=== PATIENT | male | born 1960 | race African-American/Black ===

== ENCOUNTER 2018-02-13 08:50 | Inpatient (IN) | payer BC, OTHER ==
[2018-02-13] MEDS: FUROSEMIDE 40 MG INJ IV (09:06)
[2018-02-13] MEDS: NITROGLYCERIN (SL) 0.4 MG TAB SL (09:06)
[2018-02-13] MEDS: ASPIRIN 81 MG TAB PO (09:07)
[2018-02-13] MEDS: METHYLPREDNISOLONE 125 MG INJ IV (09:07)
[2018-02-13] MEDS: hydrALAzine 20 MG INJ IV ×2 (09:29→15:40)
[2018-02-13] MEDS: ONDANSETRON 4 MG INJ IV (09:29)
[2018-02-13 09:43] LABS: ADD MAN DIFF? NO
[2018-02-13] MEDS: NITROGLYCERIN 50 MG/D5W (PMX) 250 ML IV ×3 (09:46→17:43)
[2018-02-13 09:51] LABS: BASOPHIL # 0.1 10^3/ul (0.0-0.1); BASOPHILS % 0.5 % (0.0-2.0); EOSINOPHILS # 0.1 10^3/ul (0.0-0.5); EOSINOPHILS % 0.9 % (0.0-7.0); HEMATOCRIT 33.9 % (42.0-52.0); HEMOGLOBIN 10.9 g/dl (14.0-18.0); LYMPHOCYTES # 0.8 10^3/ul (0.8-2.9); LYMPHOCYTES % 6.1 % (15.0-51.0); MEAN CORPUSCULAR HEMOGLOBIN 28.2 pg (29.0-33.0); MEAN CORPUSCULAR HGB CONC 32.2 g/dl (32.0-37.0); MEAN CORPUSCULAR VOLUME 87.8 fl (82.0-101.0); MEAN PLATELET VOLUME 12.6 fl (7.4-10.4); MONOCYTE # 0.6 10^3/ul (0.3-0.9); MONOCYTES % 4.4 % (0.0-11.0); NEUTROPHILS % 86.7 % (39.0-77.0); PLATELET COUNT 250 10^3/UL (140-415); RED BLOOD COUNT 3.86 10^6/ul (4.70-6.10); RED CELL DISTRIBUTION WIDTH 15.5 % (11.5-14.5)
[2018-02-13 09:51] LABS: WHITE BLOOD COUNT 12.6 10^3/ul (4.8-10.8)
[2018-02-13 10:16] LABS: ALANINE AMINOTRANSFERASE 55 IU/L (13-69); ALBUMIN 4.7 g/dl (3.3-4.9); ALKALINE PHOSPHATASE 161 IU/L (42-121); ANION GAP 16 (8-16); ASPARTATE AMINO TRANSFERASE 48 IU/L (15-46); BILIRUBIN,INDIRECT 0.6 mg/dl (0-1.1); BILIRUBIN,TOTAL 0.6 mg/dl (0.2-1.3); BLOOD UREA NITROGEN 38 mg/dl (7-20); CALCIUM 9.3 mg/dl (8.4-10.2); CARBON DIOXIDE 25 mmol/L (21-31); CHLORIDE 104 mmol/L (97-110); CREATININE 4.79 mg/dl (0.61-1.24); GLUCOSE 199 mg/dl (70-220); LIPASE 81 U/L (23-300); POTASSIUM 3.8 mmol/L (3.5-5.1); SODIUM 141 mmol/L (135-144); TOTAL PROTEIN 8.7 g/dl (6.1-8.1)
[2018-02-13 10:26] LABS: TROPONIN-I 0.012 ng/ml (0.000-0.120)
[2018-02-13] MEDS: METOCLOPRAMIDE 10 MG INJ IV (10:27)
[2018-02-13 10:49] LABS: Allen Test ACCEPTAB; Arterial Base Excess -1.5 mmol/L (-3.0-3); Arterial Blood Gas Oxygen Sat 85.8 mmHG (95.0-98.0); Arterial COHb 1.7 % (0.0-3.0); Arterial Fraction of Oxyhgb 84.1 % (93.0-99.0); Arterial HCO3 23.1 mmol/L (22.0-26.0); Arterial MetHb 0.3 % (0.0-1.5); Arterial pCO2 38.2 mmhg (35-45); MODE NASAL CANNULA; Site Right Radial
[2018-02-13] MEDS: ALBUTEROL 0.5% (NEB) 2.5 MG/0.5 ML AMP INH (10:57)
[2018-02-13] MEDS: IPRATROPIUM (NEB) 0.5 MG/2.5 ML AMP INH (10:58)
[2018-02-13] MEDS: ATENOLOL 50 MG TAB PO (13:33)
[2018-02-13] MEDS ORDERED: ALBUTEROL HFA 8 GM INHALER INH (15:30)
[2018-02-13 15:51] LABS: CHOLESTEROL 165 mg/dl (100-200)
[2018-02-13 15:51] LABS: CHOL/HDL RATIO 1.6 RATIO; HDL CHOLESTEROL 98 mg/dl (28-71); LDL CHOLESTEROL,CALCULATED 54 mg/dl; TRIGLYCERIDES 65 mg/dl (0-149)
[2018-02-13] MEDS ORDERED: GLUCAGON 1 MG INJ IM (16:00)
[2018-02-13] MEDS ORDERED: GLUCOSE GEL 15 GRAM TUBE PO ×2 (16:00)
[2018-02-13] MEDS ORDERED: DEXTROSE 50% 50 ML SYRINGE IV ×2 (16:00)
[2018-02-13] MEDS ORDERED: GLUCOSE GEL 15 GRAM TUBE BUCCAL (16:00)
[2018-02-13 18:12] LABS: HEPATITIS B SURFACE ANTIGEN NEGATIVE (NEGATIVE)
[2018-02-13 18:15] LABS: CHOL/HDL RATIO 1.6 RATIO; HDL CHOLESTEROL 91 mg/dl (28-71); LDL CHOLESTEROL,CALCULATED 50 mg/dl; TRIGLYCERIDES 45 mg/dl (0-149)
[2018-02-13 18:15] LABS: CHOLESTEROL 150 mg/dl (100-200)
[2018-02-13] MEDS: ENALAPRILAT 1.25 MG INJ IV (19:08)
[2018-02-13] MEDS: niCARdipine 25 MG in SOD CHLORIDE 0.9% 240 ML IV (19:35)
[2018-02-13] MEDS: HEPARIN 1000 UNITS/ML 10 ML INJ CATHETER (20:27)
[2018-02-13] MEDS ORDERED: PRAZOSIN 5 MG CAP PO (21:00)
[2018-02-14] MEDS: niCARdipine 25 MG in SOD CHLORIDE 0.9% 240 ML IV (00:07)
[2018-02-14] MEDS: PRAZOSIN 5 MG CAP PO ×4 (00:07→21:30)
[2018-02-14] MEDS: FUROSEMIDE 40 MG TAB PO ×3 (00:08→16:49)
[2018-02-14] MEDS: POTASSIUM CHLORIDE (SR) 8 MEQ CAP PO ×3 (00:08→21:30)
[2018-02-14] MEDS: INSULIN GLARGINE [LANtus] 3 ML PEN SC ×3 (00:15→21:00)
[2018-02-14 01:17] LABS: CREATINE KINASE 342 IU/L (23-200)
[2018-02-14 01:26] LABS: CK INDEX 1.2; TROPONIN-I 0.023 ng/ml (0.000-0.120)
[2018-02-14 01:27] LABS: CK-MB 3.97 ng/ml (0.0-2.4)
[2018-02-14 05:10] LABS: ADD MAN DIFF? NO
[2018-02-14 05:17] LABS: WHITE BLOOD COUNT 10.5 10^3/ul (4.8-10.8)
[2018-02-14 05:17] LABS: BASOPHILS % 0.3 % (0.0-2.0); EOSINOPHILS # 0.1 10^3/ul (0.0-0.5); EOSINOPHILS % 0.5 % (0.0-7.0); HEMATOCRIT 27.2 % (42.0-52.0); HEMOGLOBIN 8.9 g/dl (14.0-18.0); LYMPHOCYTES % 9.5 % (15.0-51.0); MEAN CORPUSCULAR HEMOGLOBIN 28.2 pg (29.0-33.0); MEAN CORPUSCULAR HGB CONC 32.7 g/dl (32.0-37.0); MEAN CORPUSCULAR VOLUME 86.1 fl (82.0-101.0); MONOCYTE # 0.8 10^3/ul (0.3-0.9); MONOCYTES % 7.5 % (0.0-11.0); NEUTROPHIL # 8.6 10^3/ul (1.6-7.5); NEUTROPHILS % 81.4 % (39.0-77.0); PLATELET COUNT 209 10^3/UL (140-415); RED BLOOD COUNT 3.16 10^6/ul (4.70-6.10); RED CELL DISTRIBUTION WIDTH 14.8 % (11.5-14.5)
[2018-02-14 05:43] LABS: ANION GAP 11 (8-16); BLOOD UREA NITROGEN 26 mg/dl (7-20); CALCIUM 8.8 mg/dl (8.4-10.2); CARBON DIOXIDE 29 mmol/L (21-31); CHLORIDE 101 mmol/L (97-110); CREATINE KINASE 308 IU/L (23-200); CREATININE 3.51 mg/dl (0.61-1.24); GLUCOSE 137 mg/dl (70-220); POTASSIUM 4.1 mmol/L (3.5-5.1); SODIUM 137 mmol/L (135-144)
[2018-02-14 05:52] LABS: CK INDEX 0.9
[2018-02-14 05:58] LABS: FREE T4 (FREE THYROXINE) 1.19 ng/dl (0.64-1.79)
[2018-02-14 05:58] LABS: CK-MB 2.77 ng/ml (0.0-2.4)
[2018-02-14] MEDS: PANTOPRAZOLE (EC) 40 MG TAB PO (06:16)
[2018-02-14 06:34] LABS: TROPONIN-I 0.024 ng/ml (0.000-0.120)
[2018-02-14 07:46] LABS: HEMOGLOBIN A1C 4.9 % (0-5.9)
[2018-02-14] MEDS: ASPIRIN 81 MG TAB PO (09:00)
[2018-02-14] MEDS: LOSARTAN 50 MG TAB PO (09:00)
[2018-02-14 13:26] LABS: CREATINE KINASE 280 IU/L (23-200)
[2018-02-14 13:38] LABS: CK INDEX 0.8; TROPONIN-I 0.025 ng/ml (0.000-0.120)
[2018-02-14] MEDS: EPOETIN 10000 UNITS/1 ML INJ (ESRD) SC (17:25)
[2018-02-14] MEDS: HEPARIN 1000 UNITS/ML 10 ML INJ CATHETER (18:07)
[2018-02-15] MEDS: PANTOPRAZOLE (EC) 40 MG TAB PO (05:21)
[2018-02-15] MEDS: FUROSEMIDE 40 MG TAB PO (05:21)
[2018-02-15 08:04] LABS: ADD MAN DIFF? NO
[2018-02-15 08:08] LABS: WHITE BLOOD COUNT 9.6 10^3/ul (4.8-10.8)
[2018-02-15 08:08] LABS: BASOPHIL # 0.1 10^3/ul (0.0-0.1); BASOPHILS % 0.6 % (0.0-2.0); EOSINOPHILS # 0.2 10^3/ul (0.0-0.5); EOSINOPHILS % 1.6 % (0.0-7.0); HEMATOCRIT 29.7 % (42.0-52.0); LYMPHOCYTES # 1.1 10^3/ul (0.8-2.9); LYMPHOCYTES % 11.6 % (15.0-51.0); MEAN CORPUSCULAR HEMOGLOBIN 28.9 pg (29.0-33.0); MEAN CORPUSCULAR HGB CONC 33.7 g/dl (32.0-37.0); MEAN CORPUSCULAR VOLUME 85.8 fl (82.0-101.0); MEAN PLATELET VOLUME 12.7 fl (7.4-10.4); MONOCYTE # 0.9 10^3/ul (0.3-0.9); MONOCYTES % 9.5 % (0.0-11.0); NEUTROPHIL # 7.3 10^3/ul (1.6-7.5); NEUTROPHILS % 75.7 % (39.0-77.0); PLATELET COUNT 200 10^3/UL (140-415); RED BLOOD COUNT 3.46 10^6/ul (4.70-6.10)
[2018-02-15] MEDS: LOSARTAN 50 MG TAB PO (08:20)
[2018-02-15] MEDS: ASPIRIN 81 MG TAB PO (08:20)
[2018-02-15] MEDS: POTASSIUM CHLORIDE (SR) 8 MEQ CAP PO (08:20)
[2018-02-15] MEDS: PRAZOSIN 5 MG CAP PO ×2 (08:21→12:26)
[2018-02-15 08:34] LABS: ANION GAP 10 (8-16); BLOOD UREA NITROGEN 30 mg/dl (7-20); CALCIUM 8.6 mg/dl (8.4-10.2); CARBON DIOXIDE 29 mmol/L (21-31); CHLORIDE 101 mmol/L (97-110); CREATININE 3.69 mg/dl (0.61-1.24); GLUCOSE 67 mg/dl (70-220); POTASSIUM 3.7 mmol/L (3.5-5.1); SODIUM 136 mmol/L (135-144)
[2018-02-15] MEDS: HEPARIN 1000 UNITS/ML 10 ML INJ CATHETER (12:05)
[2018-02-15] MEDS ORDERED: INSULIN GLARGINE [LANtus] 3 ML PEN SC (21:00)
== END 2018-02-15 12:30 | disposition still patient (30) | DRG 291 ==
LOC: MS4 02-14 18:02 → E/R 08:50 → ICU 11:44
PROC: 5A09357 Assistance with Respiratory Ventilation, Less than 24 Consecutive Hours, Continuous Positive Airway Pressure (ICD-10-PCS; principal; 2018-02-13)
PROC: 4A033R1 Measurement of Arterial Saturation, Peripheral, Percutaneous Approach (ICD-10-PCS; 2018-02-13)
DX: I13.2 Hypertensive heart and chronic kidney disease with heart failure and with stage 5 chronic kidney disease, or end stage renal disease (principal); N18.6 End stage renal disease; J96.01 Acute respiratory failure with hypoxia; I16.1 Hypertensive emergency; J44.1 Chronic obstructive pulmonary disease with (acute) exacerbation; I50.9 Heart failure, unspecified; I16.0 Hypertensive urgency; E78.5 Hyperlipidemia, unspecified; I25.10 Atherosclerotic heart disease of native coronary artery without angina pectoris; D63.8 Anemia in other chronic diseases classified elsewhere; Z99.2 Dependence on renal dialysis; Z79.82 Long term (current) use of aspirin; Z79.4 Long term (current) use of insulin
CPT/HCPCS: 36600; 71045; 80048; 80061; 80076; 82550; 82553; 82803; 82962; 83036; 83690; 83735; 84100; 84439; 84443; 84484; 85025; 87081; 87340; 90935; 93005; 93306; 94644; 94660; 96374; 96375; 96376; 99291-25

== ENCOUNTER 2018-11-19 00:34 | Emergency (ER) | payer MEDICARE, BC, OTHER ==
[2018-11-19 01:09] LABS: ADD MAN DIFF? NO
[2018-11-19 01:11] LABS: BASOPHIL # 0.1 10^3/ul (0.0-0.1); EOSINOPHILS # 0.2 10^3/ul (0.0-0.5); EOSINOPHILS % 3.6 % (0.0-7.0); HEMATOCRIT 27.6 % (42.0-52.0); LYMPHOCYTES % 20.5 % (15.0-51.0); MEAN CORPUSCULAR HEMOGLOBIN 27.1 pg (29.0-33.0); MEAN CORPUSCULAR HGB CONC 32.6 g/dl (32.0-37.0); MEAN CORPUSCULAR VOLUME 83.1 fl (82.0-101.0); MEAN PLATELET VOLUME 10.5 fl (7.4-10.4); MONOCYTE # 0.4 10^3/ul (0.3-0.9); MONOCYTES % 7.8 % (0.0-11.0); NEUTROPHIL # 3.3 10^3/ul (1.6-7.5); NEUTROPHILS % 66.5 % (39.0-77.0); PLATELET COUNT 257 10^3/UL (140-415); RED BLOOD COUNT 3.32 10^6/ul (4.70-6.10); RED CELL DISTRIBUTION WIDTH 14.6 % (11.5-14.5)
[2018-11-19 01:32] LABS: ANION GAP 14 (5-13); BLOOD UREA NITROGEN 77 mg/dl (7-20); CALCIUM 8.3 mg/dl (8.4-10.2); CARBON DIOXIDE 24 mmol/L (21-31); CHLORIDE 102 mmol/L (97-110); CREATININE 6.71 mg/dl (0.61-1.24); Estimated GFR 10 mL/min (>60); GLUCOSE 101 mg/dl (70-220); POTASSIUM 3.9 mmol/L (3.5-5.1); SODIUM 140 mmol/L (135-144)
== END 2018-11-19 04:30 | disposition home or self-care (01) ==
LOC: E/R 00:34
DX: I12.0 Hypertensive chronic kidney disease with stage 5 chronic kidney disease or end stage renal disease (principal); N18.6 End stage renal disease; E11.22 Type 2 diabetes mellitus with diabetic chronic kidney disease; J44.9 Chronic obstructive pulmonary disease, unspecified; Z79.4 Long term (current) use of insulin; Z79.82 Long term (current) use of aspirin; Z87.891 Personal history of nicotine dependence; Z99.2 Dependence on renal dialysis
CPT/HCPCS: 71045; 80048; 85025; 93005; 99285-25